=== PATIENT | male | born 1980 | race Two or more races ===

== ENCOUNTER 2019-11-15 22:58 | Inpatient (IN) ==
[2019-11-15] MEDS ORDERED: ONDANSETRON 4 MG/2 ML VIAL IV STA (23:35)
[2019-11-15 23:42] LABS: Basophils % 0.2 % (0.0-0.8); Hemoglobin 14.8 GM/DL (14.0-18.0); Immature Granulocytes % 0.3 %; Immature Granulocytes Absolute 0.03 #; Lymphocytes # 0.5 10*3/uL (1.4-4.0); Mean Corpuscular HGB Conc 34.4 GM/DL (32-36); Mean Corpuscular Volume 86.3 FL (87-102); Mean Platelet Volume 10.4 FL (9.6-12.0); Monocytes % 2.3 % (1.7-12.7); Neutrophils % 92.2 % (38.7-73.9); Platelet Count 130 T/CUMM (130-400); Red Blood Count 4.98 MC/CUMM (3.8-5.5); Red Cell Distribution Width 12.5 % (9.3-17.3); White Blood Count 9.5 T/CUMM (4-12)
[2019-11-16] MEDS ORDERED: KETOROLAC 30 MG/1 ML VIAL IV STA (00:06)
[2019-11-16 00:12] LABS: Apearance,Urine CLEAR (Clear); Bilirubin,Urine Negative (Negative); Blood, Urine Negative (Negative); Glucose,Urine (UA) Negative (Negative); Ketones,Urine 5 mg/dL (Negative); Mucus,Urine Occasional /LPF (Occasional); Nitrite,Urine Negative (Negative); Protein,Urine Negative; RBC,Urine 3 /HPF (0-4); Urine Color Yellow (Yellow); Urine Specific Gravity 1.026 (1.001-1.035); Urine Urobilinogen < 2.0 EU/DL (0.2-1.0); WBC,Urine <1 /HPF (0-6)
[2019-11-16 00:17] LABS: Alanine Aminotransferase 137 U/L (16-61); Albumin 4.4 G/DL (3.4-5.0); Alkaline Phosphatase 133 U/L (45-117); Amylase 59 U/L (25-115); Aspartate Amino Transferase 84 U/L (0-37); Blood Urea Nitrogen 16 MG/DL (7-18); Calcium 8.8 MG/DL (8.5-10.1); Estimated Glom Filtration Rate 119 ML/MIN; Ferritin 96.5 ng/ml (26-388); Glucose 135 MG/DL (74-106); Osmolality,Calculated 272.1 MOS/KG (273-304); Troponin I < 0.015 NG/ML (0.00-0.045)
[2019-11-16] MEDS ORDERED: PIPERACILLIN/TAZOBACTAM 4,500 MG in SODIUM CHLORIDE 0.9% 100 ML IV STA (00:27)
[2019-11-16 00:47] LABS: Band Neutrophils 17 % (0-10); Lymphocytes 9 % (20-55); Platelet Estimate Adequate; Segmented Neutrophils 74 % (50-85); Total Cells Counted 100
[2019-11-16] MEDS ORDERED: GLUCAGON 1 MG VIAL IM PRN (02:05)
[2019-11-16] MEDS ORDERED: ONDANSETRON 4 MG/2 ML VIAL IV PRN (02:05)
[2019-11-16] MEDS ORDERED: DEXTROSE 50% 25 GM/50 ML VIAL IV PRN (02:05)
[2019-11-16] MEDS: SODIUM CHLORIDE 0.9% 1,000 ML IV SCH ×2 (02:48→13:49)
[2019-11-16 06:57] LABS: Basophils % 0.2 % (0.0-0.8); Hematocrit 42.2 VOL% (42.0-52.0); Hemoglobin 14.5 GM/DL (14.0-18.0); Immature Granulocytes % 0.3 %; Immature Granulocytes Absolute 0.03 #; Lymphocytes # 0.7 10*3/uL (1.4-4.0); Lymphocytes % 6.1 % (21.2-54.2); Mean Corpuscular HGB Conc 34.4 GM/DL (32-36); Mean Corpuscular Volume 86.7 FL (87-102); Mean Platelet Volume 10.4 FL (9.6-12.0); Monocytes % 1.9 % (1.7-12.7); Neutrophils % 91.5 % (38.7-73.9); Red Blood Count 4.87 MC/CUMM (3.8-5.5); Red Cell Distribution Width 12.7 % (9.3-17.3); White Blood Count 10.8 T/CUMM (4-12)
[2019-11-16 06:59] LABS: Platelet Count 109 T/CUMM (130-400)
[2019-11-16 07:15] LABS: Band Neutrophils 44 % (0-10); Lymphocytes 3 % (20-55); Platelet Estimate Adequate; Segmented Neutrophils 51 % (50-85); Total Cells Counted 100
[2019-11-16 07:16] LABS: Anisocytosis Slight; Macrocytosis Slight; Spherocytes Few
[2019-11-16 07:37] LABS: Albumin 3.9 G/DL (3.4-5.0); Bilirubin,Total 2.3 MG/DL (0.2-1.0); Calcium 8.4 MG/DL (8.5-10.1); Osmolality,Calculated 275.7 MOS/KG (273-304); Total Protein 7.3 G/DL (6.4-8.3)
[2019-11-16] MEDS: MORPHINE 4 MG/1 ML VIAL IV PRN (08:30)
[2019-11-16] MEDS: PIPERACILLIN/TAZOBACTAM 3,375 MG in SODIUM CHLORIDE 0.9% 100 ML IV SCH ×2 (08:31→16:41)
[2019-11-17] MEDS: PIPERACILLIN/TAZOBACTAM 3,375 MG in SODIUM CHLORIDE 0.9% 100 ML IV SCH ×3 (00:54→16:25)
[2019-11-17] MEDS: SODIUM CHLORIDE 0.9% 1,000 ML IV SCH ×3 (00:55→16:24)
[2019-11-17 08:32] LABS: Albumin 3.6 G/DL (3.4-5.0); Bilirubin,Total 2.7 MG/DL (0.2-1.0); Calcium 7.9 MG/DL (8.5-10.1); Osmolality,Calculated 277.5 MOS/KG (273-304); Total Protein 6.7 G/DL (6.4-8.3)
[2019-11-17 15:21] LABS: Hepatitis B Core IgM Quant 0.16 Index; Hepatitis B Surface Ag Quant 0.44 Index; Hepatitis B Surface Ag Result Negative (Negative); Hepatitis C Virus Ab Quant 0.03 Index; Hepatitis C Virus Ab Result Negative (Negative)
[2019-11-18] MEDS: PIPERACILLIN/TAZOBACTAM 3,375 MG in SODIUM CHLORIDE 0.9% 100 ML IV SCH ×3 (00:55→16:03)
[2019-11-18] MEDS: SODIUM CHLORIDE 0.9% 1,000 ML IV SCH ×3 (07:36→09:54)
[2019-11-18 08:43] LABS: Albumin 3.3 G/DL (3.4-5.0); Bilirubin,Total 2.4 MG/DL (0.2-1.0); Osmolality,Calculated 272.8 MOS/KG (273-304); Total Protein 6.6 G/DL (6.4-8.3)
[2019-11-19] MEDS: PIPERACILLIN/TAZOBACTAM 3,375 MG in SODIUM CHLORIDE 0.9% 100 ML IV SCH ×3 (00:12→19:19)
[2019-11-19] MEDS: SODIUM CHLORIDE 0.9% 1,000 ML IV SCH ×3 (00:18→19:26)
[2019-11-19] MEDS: MORPHINE 4 MG/1 ML VIAL IV PRN (05:46)
[2019-11-19 06:18] LABS: Basophils % 0.1 % (0.0-0.8); Eosinophils % 0.2 % (0.00-10.9); Hematocrit 41.7 VOL% (42.0-52.0); Hemoglobin 14.6 GM/DL (14.0-18.0); Immature Granulocytes % 0.2 %; Immature Granulocytes Absolute 0.02 #; Lymphocytes % 10.3 % (21.2-54.2); Mean Corpuscular Volume 85.5 FL (87-102); Monocytes % 3.8 % (1.7-12.7); Neutrophils % 85.4 % (38.7-73.9); Platelet Count 113 T/CUMM (130-400); Red Blood Count 4.88 MC/CUMM (3.8-5.5); Red Cell Distribution Width 12.6 % (9.3-17.3); White Blood Count 9.4 T/CUMM (4-12)
[2019-11-19 06:42] LABS: Albumin 3.4 G/DL (3.4-5.0); Bilirubin,Total 3.7 MG/DL (0.2-1.0); Calcium 8.4 MG/DL (8.5-10.1); Total Protein 6.9 G/DL (6.4-8.3)
[2019-11-20] MEDS: PIPERACILLIN/TAZOBACTAM 3,375 MG in SODIUM CHLORIDE 0.9% 100 ML IV SCH ×3 (01:49→16:16)
[2019-11-20] MEDS: SODIUM CHLORIDE 0.9% 1,000 ML IV SCH ×3 (02:00→22:36)
[2019-11-20 05:45] LABS: Basophils % 0.3 % (0.0-0.8); Eosinophils # 0.1 10*3/uL (0.0-0.87); Eosinophils % 0.8 % (0.00-10.9); Hematocrit 42.2 VOL% (42.0-52.0); Hemoglobin 14.3 GM/DL (14.0-18.0); Immature Granulocytes % 0.7 %; Immature Granulocytes Absolute 0.05 #; Lymphocytes # 1.2 10*3/uL (1.4-4.0); Lymphocytes % 16.6 % (21.2-54.2); Mean Corpuscular HGB Conc 33.9 GM/DL (32-36); Mean Corpuscular Volume 87.6 FL (87-102); Monocytes % 7.8 % (1.7-12.7); Neutrophils % 73.8 % (38.7-73.9); Platelet Count 119 T/CUMM (130-400); Red Blood Count 4.82 MC/CUMM (3.8-5.5); Red Cell Distribution Width 12.5 % (9.3-17.3); White Blood Count 7.2 T/CUMM (4-12)
[2019-11-20 06:05] LABS: Calcium 8.7 MG/DL (8.5-10.1); Osmolality,Calculated 268.1 MOS/KG (273-304)
[2019-11-20 06:09] LABS: Hypochromasia Slight; Platelet Estimate Decreased
[2019-11-20 06:10] LABS: Albumin 3.5 G/DL (3.4-5.0); Bilirubin,Direct 0.41 MG/DL (0.0-0.20); Bilirubin,Indirect 2.4 MG/DL (0.0-1.0); Bilirubin,Total 2.8 MG/DL (0.2-1.0); Total Protein 7.1 G/DL (6.4-8.3)
[2019-11-20 12:23] LABS: PT Patient Result 10.7 SECS (9.8-11.9); Partial Thromboplastin Time 28.8 SECS (23.9-33.8)
[2019-11-20] MEDS ORDERED: LIDOCAINE 1%/EPI INJ 20 ML VIAL ONE (12:32)
[2019-11-20] MEDS ORDERED: BUPIVACAINE MPF 0.25% 30 ML VIAL ONE (12:32)
[2019-11-20] MEDS ORDERED: SUGAMMADEX 200 MG/2 ML VIAL IV ONE (13:01)
[2019-11-20] MEDS ORDERED: fentaNYL 100 MCG/2 ML VIAL ONE ×2 (13:07→14:04)
[2019-11-20] MEDS ORDERED: ONDANSETRON 4 MG/2 ML VIAL ONE ×2 (13:07→15:17)
[2019-11-20] MEDS ORDERED: LIDOCAINE 2% 5 ML VIAL ONE (13:07)
[2019-11-20] MEDS ORDERED: ROCURONIUM 100 MG/10 ML VIAL IV ONE (13:07)
[2019-11-20] MEDS ORDERED: MIDAZOLAM 2 MG/2 ML VIAL ONE (13:07)
[2019-11-20] MEDS ORDERED: propofoL 200 MG/20 ML VIAL IV ONE (13:07)
[2019-11-20] MEDS ORDERED: SUCCINYLCHOLINE 200 MG/10 ML VIAL ONE (13:08)
[2019-11-20] MEDS ORDERED: HYDROmorphone 2 MG/1 ML VIAL ONE (15:17)
[2019-11-20] MEDS ORDERED: HYDROmorphone 2 MG/1 ML VIAL IV PRN (15:18)
[2019-11-20] MEDS ORDERED: ONDANSETRON 4 MG/2 ML VIAL IV PRN (15:18)
[2019-11-21] MEDS: PIPERACILLIN/TAZOBACTAM 3,375 MG in SODIUM CHLORIDE 0.9% 100 ML IV SCH ×2 (01:32→08:12)
[2019-11-21] MEDS: SODIUM CHLORIDE 0.9% 1,000 ML IV SCH (02:00)
[2019-11-21 08:14] VITALS: BP 131/83
== END 2019-11-21 14:57 | disposition home or self-care (01) | DRG 417 ==
LOC: EDBD → N.ED 22:58 → N.EDINP 22:58 → N.3E 11-16 02:51 → SUATTDRO 11-16 14:00 → N.2E 11-19 02:06
PROVIDERS: ADMIT Family Medicine; ATTEND Internal Medicine
PROC: LAPCHOL (2019-11-20 13:42)